=== PATIENT | female | born 1990 | race Caucasian/White ===

== ENCOUNTER 2021-02-19 21:34 | Inpatient (IN) | payer BC ==
[~2021-02-19] VITALS: Ht 172.7 cm; Wt 113.2 kg
--- NOTE | 2021-02-19 21:45 | NUR ---
Ambulatory to unit for labor assessment, accompanied by spouse. Pt reports "my water broke @ 9:00" Oriented to room, moitor, plan of care. Questions invited and answered.
[2021-02-20] VITALS (45 sets, daily range): BP systolic 96–132; BP diastolic 52–85; PULSE 77–151; TEMP 97.8–99.2
[2021-02-20 00:53] LABS: BASO % 0.2 % (0.0-2.0); EOS % 0.4 % (0-4.0); GRAN # 7.3 (1.4-6.5); GRAN % 69.5 % (42.2-75.2); HEMOGLOBIN 12.6 g/dl (12.5-16.0); LYMPH % 19.4 % (20.0-51.0); MEAN CELL VOLUME 98 fl (80.0-100.0); MEAN CORPUSCULAR HEMOGLOBIN 33 pg (27.0-31.0); MEAN CORPUSCULAR HGB CONC 34 g/dl (33.0-37.0); MEAN PLATELET VOLUME 10.7 fl (7.4-10.4); MONO # 1.1 (0.1-0.6); MONO % 10.1 % (1.7-9.3); PLATELET COUNT 207 K/mm3 (130-400); RED BLOOD COUNT 3.77 M/mm3 (4.10-5.30); REDCELL DISTRIBUTION WIDTH-CV 13.2 % (11.5-14.5)
--- NOTE | 2021-02-20 01:05 | NUR ---
PCN piggyback infused. IV to INT. Off monitor, encouraged to moove around room, birthing ball in room.
[2021-02-20] MEDS ORDERED: PRENATAL TABLET PO (01:22)
[2021-02-20] MEDS ORDERED: PRILOSEC10 MG PO (01:23)
--- NOTE | 2021-02-20 03:00 | NUR ---
SVE with minimal changes as noted. Discussed with pt, pitocin augmentation protocol. Pt verbalizes understanding. Pitocin gtt started.
--- NOTE | 2021-02-20 04:20 | NUR ---
Pt reports IV stinging, PCN piggyback slowed down. Pt reports contractions getting ' a lot closer and stronger'.
--- NOTE | 2021-02-20 05:35 | NUR ---
Pt tense, deep breathing through contractions. SVE as noted. Off monitor, up to bathroom. To rocking chair. States "this is better"
--- NOTE | 2021-02-20 06:25 | NUR ---
Continues in rocking chair. Asking about pain medication options: IV vs Epidural. Discussed. PT states "I'm not quite ready for anything"
--- NOTE | 2021-02-20 07:27 | NUR ---
Pt sitting upright for epidural placement. Difficulty tracing FHR due to maternal position. RN at bedside adjusting monitors. FHR audible.
--- NOTE | 2021-02-20 11:54 | NUR ---
Dr. Pritchard at bedside. SVE per provider C/+2. Pt prepped for delivery. Coached on pushing. Begins to push with RN. Moves vertex well. Provider remains on unit. 1223- of viable female infant attended by Dr. Pritchard. Cord clamped x 2 and cut from umbilicus. Infant dried and placed on maternal abdomen. Care of infant to Tj Escalante RN. Apgars 8/9. 1226- of placenta. Fundus firm at umbilicus. Bleeding WNL. Pitocin bolus infusing per protocol. Second degree laceration repaired per provider. Pericare performed. Ice pack applied. Pt updated on POC. Bed locked in low position. Call light within reach. No questions or concerns at this time.
--- NOTE | 2021-02-20 14:30 | NUR ---
Provider notified of sustained elevated maternal HR. BP stable. Bleeding WNL. Afebrile. Orders to conitnue IVF and monitor.
[2021-02-21 04:00] VITALS: BP 110/55; PULSE 106; TEMP 98.7
[2021-02-21 09:05] VITALS: BP 103/66; PULSE 101; TEMP 98
[2021-02-21 21:30] VITALS: BP 111/60; PULSE 106; TEMP 98.7
[2021-02-22 09:15] VITALS: BP 107/57; PULSE 90; TEMP 98.1
[2021-02-22] MEDS ORDERED: IBU800 M1 PO (11:07)
--- NOTE | 2021-02-22 12:50 | NUR ---
Discharge instructions and paperwork reviewed with pt and . Both verbalized an understanding, agreed with the plan and states no questions or concerns at this time.
== END 2021-02-22 13:10 | disposition home or self-care (01) | DRG 807 ==
LOC: LDRO 21:34 → LDR 22:21 → OB 02-20 16:00
PROVIDERS: Obstetrics & Gynecology; ADMIT Obstetrics & Gynecology
PROC: 10E0XZZ Delivery of Products of Conception, External Approach (ICD-10-PCS; principal; 2021-02-20)
PROC: 0KQM0ZZ Repair Perineum Muscle, Open Approach (ICD-10-PCS; 2021-02-20)
PROC: 0UQMXZZ Repair Vulva, External Approach (ICD-10-PCS; 2021-02-20)
DX: O99.824 Streptococcus B carrier state complicating childbirth (principal); Z37.0 Single live birth; O70.1 Second degree perineal laceration during delivery; Z3A.38 38 weeks gestation of pregnancy
CPT/HCPCS: J2540; J2590; J7120

== ENCOUNTER 2024-05-03 10:53 | Inpatient (IN) | payer BC ==
[2024-05-03] VITALS (14 sets, daily range): BP systolic 92–132; BP diastolic 52–82; PULSE 70–93; TEMP 98.2
[~2024-05-03] VITALS: Ht 170.2 cm; Wt 110.9 kg
[~2024-05-03 10:53] MED LIST: IBU800 M1 PO; PRENATAL TABLET PO; PRILOSEC10 MG PO
[2024-05-03] MEDS ORDERED: LR 1,000 ML IV SCH (11:30)
[2024-05-03] MEDS ORDERED: LR & Oxytocin 500 ML IV SCH (11:30)
--- NOTE | 2024-05-03 11:30 | NUR ---
1100- Pt arrives on unit ambulatory with , complaints of contractions since 0700. 1107- Pt into bed. EFM and TOCO on. Pt denies LOF, VB. +FM per Pt. Assessment completed. Pt denies complications with . records reviewed.
[2024-05-03 11:51] LABS: BASO % 0.3 % (0.0-2.0); EOS # 0.3 K/mm3 (0.0-0.7); EOS % 2.3 % (0.0-4.0); GRAN # 9.2 K/mm3 (1.4-6.5); GRAN % 71.5 % (42.2-75.2); HEMATOCRIT 39.8 % (37.0-47.0); HEMOGLOBIN 13.9 g/dl (12.5-16.0); LYMPH # 2.2 K/mm3 (1.2-3.4); LYMPH % 16.8 % (20.0-51.0); MEAN CELL VOLUME 100 fl (80.0-100.0); MEAN CORPUSCULAR HEMOGLOBIN 35 pg (27-31); MEAN CORPUSCULAR HGB CONC 35 g/dl (33.0-37.0); MONO # 1.1 K/mm3 (0.1-0.6); MONO % 8.7 % (1.7-9.3); PLATELET COUNT 190 K/mm3 (130-400); RED BLOOD COUNT 3.98 M/mm3 (4.10-5.30); REDCELL DISTRIBUTION WIDTH-CV 12.4 % (11.5-14.5)
--- NOTE | 2024-05-03 12:00 | NUR ---
1200- Pt report given to BERNARD Dukes. She assumes care at this time.
--- NOTE | 2024-05-03 12:05 | NUR ---
DANTE FELICIANO AT BEDSIDE. PT SITTING UPRIGHT ON EDGE OF BED, LR BOLUS INFUSING PER PROTOCOL, PULSE OX IN PLACE. 1214 SINGLE SHOT ADMINISTERED BY DANTE FELICIANO. PT TOLERATED WELL. VS STABLE. EFM CAT 1. PT RETURNED TO WL POSITION. COMFORTABLE.
[2024-05-03] MEDS ORDERED: ROPivacaine PF 0.2% 200 ML IV ONE (12:07)
[2024-05-03] MEDS ORDERED: Naloxone 0.4 MG/ML VIAL IV PRN ×2 (12:30→14:45)
[2024-05-03] MEDS ORDERED: diphenhydrAMINE 50 MG/ML 1 ML VIAL IV PRN (12:30)
[2024-05-03] MEDS ORDERED: Ondansetron 4 MG/2 ML VIAL IV PRN (12:30)
[2024-05-03] MEDS ORDERED: ePHEDrine 50 MG/10 ML VIAL IV PRN (12:30)
[2024-05-03] MEDS ORDERED: diphenhydrAMINE 25 MG CAP PO PRN (12:30)
--- NOTE | 2024-05-03 13:31 | NUR ---
1312 DR BARRETT AT BEDSIDE FOR SVE /1, AROM COMPLETE AT THIS TIME, MECONIUM STAINED FLUID. PT COMPLETE AFTER AROM. BEGAN PUSHING AT THIS TIME. STAFF NOTIFIED. 1331 OF VIABLE MALE PER . PT TOLERATED WELL. PLACED ON MATERNAL ABDOMEN ADN CARE ASSUMED BY NURSERY RN. [address] BARRETT. LOCHIA WNL, VS STABLE. FUNDUS FIRM AT U. PITOCIN BOLUS STARTED PER PROTOCOL. REPAIRED 2ND DEGREE & R LABIAL LACERATION. TOLERATED WELL. WILL FOLLOW POC.
[2024-05-03] MEDS ORDERED: Magnes Hydrox (MOM) 80 MG/ML 30 ML CUP PO PRN (14:00)
[2024-05-03] MEDS ORDERED: Loratadine 10 MG TAB PO PRN (14:00)
[2024-05-03] MEDS ORDERED: Measles/Mumps/Rubella Virus Vaccine Live w Diluent 0.5 ML VIAL SQ SCH (14:45)
[2024-05-03] MEDS ORDERED: Phenylephrine/Mineral Oil/Petrolatum 57 GM TUBE RC PRN (14:45)
[2024-05-03] MEDS ORDERED: Mag/Al Hydrox/Simeth Susp 30 ML CUP PO PRN (14:45)
[2024-05-03] MEDS ORDERED: Witch Hazel 50% Pads Bulk TUB TP PRN (14:45)
[2024-05-03] MEDS ORDERED: oxyCODONE 5 MG TAB PO PRN (14:45)
[2024-05-03] MEDS ORDERED: Ibuprofen 800 MG TAB PO SCH (15:30)
[2024-05-03] MEDS ORDERED: Acetaminophen 500 MG TAB PO SCH (15:30)
--- NOTE | 2024-05-03 16:00 | NUR ---
PT AMBULATORY TO PP ROOM. ABLE TO VOID, DID NOT CATCH IN THE HAT, NEW GOWN, PANTIES, AND PAD PLACED. EPIDURAL CATHETER REMOVED.
[2024-05-03] MEDS ORDERED: Sennosides/Docusate 8.6-50 MG TAB PO SCH (17:00)
[2024-05-03] MEDS ORDERED: traZODone 50 MG TAB PO PRN (21:00)
[2024-05-04] VITALS: BP 93/49; PULSE 100; TEMP 98.2
[2024-05-04 07:45] VITALS: BP 120/73; PULSE 102; TEMP 98.4
[2024-05-04] MEDS ORDERED: IBU800 M1 PO (09:40)
[2024-05-04] MEDS ORDERED: Ibuprofen 800 MG TAB PO SCH (13:00)
== END 2024-05-04 16:15 | disposition home or self-care (01) | DRG 807 ==
LOC: LDRO 10:53 → LDR 12:11 → OB 12:11
PROVIDERS: ADMIT Obstetrics & Gynecology
PROC: 10E0XZZ Delivery of Products of Conception, External Approach (ICD-10-PCS; principal; 2024-05-03)
PROC: 0KQM0ZZ Repair Perineum Muscle, Open Approach (ICD-10-PCS; 2024-05-03)
PROC: 10907ZC Drainage of Amniotic Fluid, Therapeutic from Products of Conception, Via Natural or Artificial Opening (ICD-10-PCS; 2024-05-03)
DX: O69.81X0 Labor and delivery complicated by cord around neck, without compression, not applicable or unspecified (principal); Z37.0 Single live birth; O77.0 Labor and delivery complicated by meconium in amniotic fluid; Z3A.41 41 weeks gestation of pregnancy; O70.1 Second degree perineal laceration during delivery
CPT/HCPCS: J2590; J2795; J7120